=== PATIENT | female | born 1960 | race Caucasian/White ===

== ENCOUNTER → 2016-05-26 | Outpatient (CLI) | payer OTHER ==
--- NOTE | 2016-05-26 17:33 | DX ---
PA and Lateral Chest History: Productive cough. Comparison: None available. Findings: There is diffuse peribronchial thickening with a rounded medial right basilar opacity. The lungs are hyperexpanded. There is no pneumothorax. Heart size is normal. Mild degenerative change is present in the spine. Impression: Bronchitis with a medial right basilar opacity that could represent pneumonia, mass, or a prominent epicardial fat pad. Short-term follow-up radiograph is recommended in one month. Alternati vely, CT could be performed. A Follow-Up Required message has been communicated to Alexandra Henderson NP via the [employer] system on 05/26/2016 17:31, Message ID [id number].
== END ==
LOC: GIMAGING 17:06
PROVIDERS: ATTEND Nurse Practitioner Acute Care
DX: J40 Bronchitis, not specified as acute or chronic (principal)
CPT/HCPCS: 71020-PO

== ENCOUNTER 2016-06-08 12:01 | Emergency (ER) | payer OTHER ==
[2016-06-08 12:12] VITALS: TEMP 97.9
--- NOTE | 2016-06-08 12:20 | CPEKG ---
Heart Rate: 83 RR Interval: 723 P-R Interval: 185 QRSD Interval: 68 QT Interval: 392 QTC Interval: 461 P Graham: 0 QRS Graham: 74 T Wave Graham: 68 EKG Severity - NORMAL ECG - EKG Impression: SINUS RHYTHM Electronically Signed By: Sunil Kilpatrick 09-Jun-2016 00:26:00
--- NOTE | 2016-06-08 12:50 | EDPHY ---
H & P Stated Complaint: chest pain Time Seen by Provider: 06/08/16 12:50 - Personal History Current Tetanus/Diphtheria Vaccine: Unsure - Medical/Surgical History Hx Asthma: No Hx Chronic Respiratory Disease: No Hx Diabetes: No Hx Cardiac Disease: No Hx Renal Disease: No Hx Cirrhosis: No Hx Alcoholism: No Hx HIV/AIDS: No Hx Splenectomy or Spleen Trauma: No Other PMH: lupus/pna - Social History Smoking Status: Never smoked Constitutional: Initial Vital Signs Temperature (C) 36.6 C 06/08/16 12:10 Heart Rate 104 H 06/08/16 12:10 Respiratory Rate 28 H 06/08/16 12:10 Blood Pressure 132/63 H 06/08/16 12:10 O2 Sat (%) 99 06/08/16 12:10 O2 Delivery Mode Room Air Allergies/Adverse Reactions: lots Allergy (Uncoded 06/08/16 12:09) Home Medications: Medication Instructions Recorded AZITHROMYCIN 06/08/16 Nitro-Dur 06/08/16 Prednisone 06/08/16 Proair Hfa Icu (*) 06/08/16 Medical Decision Making ED Course/Re-evaluation: CHIEF COMPLAINT: Cough and chest congestion HISTORY OF PRESENT ILLNESS: 55-year-old female with a past medical history significant for lupus. She has had no cardiac difficulties secondary to the lupus. She was diagnosed on the 26 of May with bronchitis. Chest x-ray was performed. She received a course of azithromycin and supportive treatment. She does not feel like she is better. I have reviewed the visit from urgent care in addition to the conversations and addendum to the chart for both times that she called back with multiple questions after her visits. She was encouraged to come to the emergency department if she had ongoing symptoms. REVIEW OF SYSTEMS: A 10 point review of systems was performed and is negative with the exception of the elements mentioned in the history of present illness. PHYSICAL EXAM: HR, BP, O2 Sat, RR. Temp noted General Appearance: Alert, well hydrated, appropriate, and non-toxic appearing. Head: Atraumatic without scalp tenderness or obvious injury Eyes: Pupils equal, round, reactive to light and accommodation, EOMI, no trauma , no injection. Ears: Clear bilaterally, no perforation, normal landmarks Nose: Atraumatic, no rhinorrhea, clear. Throat: There is no erythema or exudates, no lesions, normal tonsils, mucus membranes moist. Neck: Supple, 2+ carotid upstroke, nontender, no lymphadenopathy. Respiratory: No retractions, no distress, no wheezes, and no accessory muscle use. Lungs are clear to auscultation bilaterally. Cardiovascular: Regular rate and rhythm, no murmurs, rubs, or gallops. Bilateral carotid, radial, dorsalis pedis, and posterior tibial pulses intact. Good capillary refill all extremities. Gastrointestinal: Abdomen is soft, nontender, non-distended, no masses, no rebound, no guarding, no peritoneal signs. Musculoskeletal: Normal active ROM of all extremities, atraumatic. Neurological: Alert, appropriate, and interactive. The patient has normal DTRs and non-focal cranial nerves, motor, sensory, and cerebellar exam. Skin: No rashes, good turgor, no nodules on palpation. Past medical history: Lupus Past surgical history: Noncontributory Family history: Noncontributory Social history: Single, lives in [place], here helping with the relatives , does not use tobacco drugs or alcohol DIAGNOSTICS/PROCEDURES/CRITICAL CARE TIME: Study: CT angiography of the chest Indication: continued cough and congestion with diagnosed bronchitis and possibly early pneumonia Results: CT scan of the chest was obtained. The results of the study are normal apart from mild bronchitis. The study was read by the radiologist, Dr. Patric Franco. I viewed the images myself on the PACS system. The 12 lead EKG was interpreted by myself. See hard copy and/or "tracemaster" electronic copy for interpretation. Sinus mechanism no ischemia normal intervals no evidence of pericarditis DIFFERENTIAL DIAGNOSIS: The differential diagnosis for the patient's chest pain included but was not limited to myocardial ischemia, pulmonary embolus, chest wall pain, pleural inflammation, and pulmonary infectious causes. MEDICAL DECISION MAKING: This patient has good vital signs. She is very focused on her lupus and chronic disease state and has significant health anxiety in my opinion. Her exam is essentially unremarkable except for some mild bronchitis potentially. She was recommended to come to the emergency department for CT of her chest if she was not improving by the physician who saw her at urgent care and then talk to her twice subsequently on the phone. She has presented today for that. I will also perform laboratory studies. Laboratory studies are unremarkable. - Data Points Laboratory Results: Laboratory Results 06/08/16 12:20 06/08/16 12:20 06/08/16 06/08/16 13:03 12:20 WBC 5.55 10^3/uL (3.80-9.50) RBC 4.86 10^6/uL (4.18-5.33) Hgb 14.3 g/dL (12.6-16.3) POC Hgb 13.6 gm/dL (12.3-15.9) Hct 41.8 % (38.0-47.0) POC Hct 40 % (35.5-47.5) MCV 86.0 fL (81.5-99.8) MCH 29.4 pg (27.9-34.1) MCHC 34.2 g/dL (32.4-36.7) RDW 13.5 % (11.5-15.2) Plt Count 390 10^3/uL (150-400) MPV 8.5 L fL (8.7-11.7) Neut % (Auto) 60.5 % (39.3-74.2) Lymph % (Auto) 29.4 % (15.0-45.0) [place] % (Auto) 9.0 % (4.5-13.0) Eos % (Auto) 0.0 L % (0.6-7.6) Baso % (Auto) 0.9 % (0.3-1.7) Nucleat RBC Rel Count 0.0 % (0.0-0.2) Absolute Neuts (auto) 3.36 10^3/uL (1.70-6.50) Absolute Lymphs (auto) 1.63 10^3/uL (1.00-3.00) Absolute Monos (auto) 0.50 10^3/uL (0.30-0.80) Absolute Eos (auto) 0.00 L 10^3/uL (0.03-0.40) Absolute Basos (auto) 0.05 10^3/uL (0.02-0.10) Absolute Nucleated RBC 0.00 10^3/uL (0-0.01) Immature Gran % 0.2 % (0.0-1.1) Immature Gran # 0.01 10^3/uL (0.00-0.10) POC Sodium 139 mEq/L (134-144) Sodium 140 mEq/L (134-144) POC Potassium 3.6 mEq/L (3.3-5.0) Potassium 4.0 mEq/L (3.5-5.2) POC Chloride 104 mEq/L (96-108) Chloride 105 mEq/L (97-110) Carbon Dioxide 22 mEq/l (22-31) Anion Gap 13 mEq/L (8-16) POC BUN 11 mg/dL (7-23) BUN 12 mg/dL (7-23) Creatinine 0.7 mg/dL (0.6-1.0) POC Creatinine 0.6 mg/dL (0.6-1.2) Estimated GFR > 60 Glucose 87 mg/dL (70-100) POC Glucose 83 mg/dL (70-100) Calcium 9.5 mg/dL (8.5-10.4) Point of Care Test Results: 06/08/16 13:03 POC Sodium 139 POC Potassium 3.6 POC Chloride 104 POC BUN 11 POC Creatinine 0.6 POC Glucose 83 Departure - Departure Disposition: Home, Routine, Self-Care Clinical Impression: Bronchitis Condition: Good Instructions: Acute Bronchitis (ED) Additional Instructions: 1. Your imaging today demonstrates that you are continuing to experience bronchitis. Continue your treatment plan as discussed. If your symptoms do not improve within the next 3-5 days, call to schedule a follow-up appointment with your primary care provider. 2. It is important that you rest and have no stress during recovery of your illness. 3. Return to the Emergency Department if you experience worsening shortness of breath, worsening chest pain, high fever, or other serious concerns. Referrals: [facility] [Outside] - As per Instructions
[2016-06-08 13:02] LABS: % IMMATURE GRANULYOCYTES 0.2 % (0.0-1.1); ABSOLUTE IMMATURE GRANULOCYTES 0.01 10^3/uL (0.00-0.10); ADD DIFF? NO; ADD MORPH? NO; ADD SCAN? NO; ATYPICAL LYMPHOCYTE FLAG 10 (0-99); FRAGMENT RBC FLAG 0 (0-99); HEMATOCRIT 41.8 % (38.0-47.0); HEMOGLOBIN 14.3 g/dL (12.6-16.3); LEFT SHIFT FLG 0 (0-99); LIPEMIA HEMOLYSIS FLAG 90 (0-99); MEAN CELL HEMOGLOBIN 29.4 pg (27.9-34.1); MEAN CELL HEMOGLOBIN CONCENTR. 34.2 g/dL (32.4-36.7); MEAN PLATELET VOLUME 8.5 fL (8.7-11.7); PLATELET CLUMPS FLAG 0 (0-99); PLATELET COUNT 390 10^3/uL (150-400); RED BLOOD CELL COUNT 4.86 10^6/uL (4.18-5.33); RED CELL DISTRIBUTION WIDTH 13.5 % (11.5-15.2)
[2016-06-08 13:15] LABS: ANION GAP 13 mEq/L (8-16); CALCIUM 9.5 mg/dL (8.5-10.4); CARBON DIOXIDE 22 mEq/l (22-31); CHLORIDE 105 mEq/L (97-110); CREATININE 0.7 mg/dL (0.6-1.0); GLOMERULAR FILTRATION RATE > 60; GLUCOSE 87 mg/dL (70-100); SODIUM 140 mEq/L (134-144)
[2016-06-08] MEDS ORDERED: IOPAMIDOL (ISOVUE 370) 100 ML BTL IV ONE (13:18)
--- NOTE | 2016-06-08 14:06 | CT ---
CT Pulmonary Angiogram History: Shortness of breath, elevated D-dimer. Nonsmoker with no cancer history. Comparison: PA and lateral chest May 26, 2016. Technique: Axial contrast-enhanced images were obtained through the chest following the uneventful in travenous administration of 85 mL Isovue-370. Creatinine is 0.7. Multiplanar reformations were perfor med through the pulmonary arteries. Dose reduction techniques were utilized. Findings: This is a good quality study with visualization of the vessels to the subsegmental level. T here is no pulmonary embolus. There is minimal central peribronchial thickening. There are numerous s mall tree in bud nodules in the posterior right upper lobe (series 6 image 87 e.g.) and right lower l obe. The right basilar opacity seen on the comparison plain film was related to a prominent epicardia l fat pad. Granulomas are present. Heart size is normal. A small pericardial effusion is present. The aorta is normal caliber without dissection. No pathologically enlarged lymph nodes are identified. T he bones are normal. Visualized structures in the upper abdomen are normal. Impression: 1. No visible pulmonary embolus. 2. Bronchitis with scattered tree-in-bud nodules, most likely inflammatory or infectious. 3. Small pericardial effusion. 4. Prominent epicardial fat pad accounting for the finding on plain film. 5. Additional findings as above. Findings discussed with Dr. Jose Francisco Hendrickson, on June 08, 2016 at 1356 hours.
[2016-06-08 14:23] VITALS: O2SAT 96
[2016-06-08 15:05] VITALS: BP 122/60; PULSE 75; RESP 95
== END 2016-06-08 15:16 | disposition home or self-care (01) ==
DX: J40 Bronchitis, not specified as acute or chronic (principal)
CPT/HCPCS: 71275; 93005; 99285; Q9967; 82947-QW